=== PATIENT | male | born 1995 | race Caucasian/White ===

== ENCOUNTER 2024-06-24 15:07 | Emergency (ER) | payer OTHER, SELFPAY ==
[2024-06-24 15:08] VITALS: BP 124/83; PULSE 71; RESP 15; TEMP 35.6; O2SAT 98; BMI 35.6
--- NOTE | 2024-06-24 15:27 | EDS_ITS ---
HPI History of Present Illness Chief Complaint: Chest Other Narrative Narrative: 29-year-old male past medical history of eosinophilic esophagitis presents with esophageal swelling over the last 3 hours. He states he ate a piece of chicken at around 1230, and feels like it stuck. He is having difficulty swallowing and occasionally has to spit up in a bag. He states that he was diagnosed with this years ago, when he was in his teens. He recently moved here from [place] within the last 15-month and does not follow-up with anyone. He states that usually when this happens, it goes away after half an hour, but a few years ago he did require steroids in the emergency department. He denies any difficulty breathing. No vomiting, no other symptoms. [facility] Medical History Eosinophilic esophagitis Home Medications ?Medication ?Instructions ?Recorded ?Last Taken ?Type NK 06/24/24 Unknown History Allergy/AdvReac Type Severity Reaction Status Date / Time chicken derived AdvReac Intermediate Swelling Verified 06/24/24 15:12 Egg Derived AdvReac Intermediate Swelling Verified 06/24/24 15:12 Social History Smoking Status: Never smoker ROS ROS ED ROS Narrative Review of systems positive for reported throat swelling, no chest pain or shortness of breath, no fevers or chills, no nausea or vomiting. States he is having difficulty swallowing. EXAM Physical Exam Narrative Exam Narrative: Afebrile. Vital signs noted. Nontoxic-appearing. Cardiovascular examination feels a regular rate rhythm. Lungs are clear to auscultation bilaterally. Abdomen is soft, nontender, with normoactive bowel sounds. No guarding or rebound. Airway is patent. No drooling or trismus. Neck soft and supple without meningismus. Neurological examination is nonfocal and nonlateralizing. Const Vital Signs: 06/24/24 15:08 06/24/24 15:23 06/24/24 16:30 Temperature 96.1 F L 98.0 F Temperature Source Temporal Pulse Rate 71 89 Respiratory Rate 15 17 Respiratory Effort Normal Non-Labored Blood Pressure 124/83 H 130/80 H Blood Pressure Mean 96 96 Pulse Ox 98 99 Oxygen Delivery Method Room Air MDM MDM MDM Narrative Medical decision making narrative: Differential diagnosis includes but not limited to esophageal food impaction versus eosinophilic esophagitis. Patient's pulse ox is 98% on room air. I do not feel that he needs any imaging. He has an occasionally spitting up in an emesis bag, but able to speak in full sentences. I will check a CBC to check if he has an eosinophilia. He was given Solu-Medrol 60 mg intravenously and placed on the ekg monitor tech. I reviewed his laboratory work and he has normal white count of 9.3 with hemoglobin slightly hemoconcentrated at 17.3 and platelet count normal at 260. Eosinophils normal at 4.6. At this point in time, upon repeat examination at approximately 1605, patient is resting comfortably and feels mildly improved. He states he usually only gets 1 dose of steroids and does not have to take any as an outpatient. He will be given a p.o. fluid challenge, and as long as he passes, I feel he can be discharged to follow-up with gastroenterology. He was able to swallow liquids without difficulty. Hence, I do not feel he needs transfer for gastroenterology consult and upper endoscopy. Return instructions to the emergency department were reviewed. Disposition is discharged home in stable condition. History & Record Review Discussion w/independent historian: Patient Lab Data Attestation: I reviewed the patient's lab results. Labs: Laboratory Results - last 24 hr 06/24/24 15:40 WBC 9.3 RBC 5.91 Hgb 17.3 H Hct 50.7 MCV 85.8 MCH 29.3 MCHC 34.1 RDW Std Deviation 37.2 RDW Coeff of Simone 11.9 Plt Count 260 MPV 10.5 Immature Gran % (Auto) 0.100 Neut % (Auto) 48.6 Lymph % (Auto) 39.6 [place] % (Auto) 6.3 Eos % (Auto) 4.6 Baso % (Auto) 0.8 Absolute Neuts (auto) 4.5 Absolute Lymphs (auto) 3.67 Nucleated RBC % 0 Discharge Plan Triage Chief Complaint: Chest Other ED Provider: Nikolas Jamison Dx/Rx/DC Orders Clinical Impression: Difficulty swallowing, Eosinophilic esophagitis Instructions: Eosinophilic Esophagitis (EoE), ED Dysphagia (Adult) Prescriptions: No Action NK Primary Care Provider: Care Physician,No Primary Referrals: Friend,Darius, DO [Med Staff - Active Staff] - As soon as possible Care Physician,No Primary [Primary Care Provider] - Activity Restrictions/Additional Instructions: Clear liquids orally, advance diet as tolerated. Follow-up with gastroentero logy as soon as possible. Return to the emergency department with increased difficulty swallowing, breathing, new or worsening symptoms. Print Language: Turkmen Disposition Disposition: Home, Self Care Discharge Date/Time: 06/24/24 16:30
[2024-06-24] MEDS: MethylPREDNISolone 125 MG/2 ML Vial 60 MG IV (15:31)
[2024-06-24 16:00] LABS: Absolute Lymphocyte Count 3.67 X10^3/uL (0.83-4.51); Absolute Neutrophil Count 4.5 X10^3/uL (2.0-7.7); Basophil# 0.07 X10^3/uL; Basophil% 0.8 % (0-1); Eosinophil# 0.43 X10^3/uL; Eosinophils% 4.6 % (0-5); Hematocrit 50.7 % (40-54); Hemoglobin 17.3 g/dL (13.0-16.5); Lymphocyte # 3.67 X10^3/ul (0.83-4.51); Lymphocyte % 39.6 % (19-41); Mean Corp Hgb Conc 34.1 g/dL (32-36); Mean Corpuscular Hgb 29.3 pg (27.0-32.0); Mean Corpuscular Volume 85.8 fL (80-94); Mean Platelet Vol. 10.5 fl (6.2-12.0); Monocyte# 0.58 X10^3/uL; Monocyte% 6.3 % (0-10); NRBC Flagged by Analyzer 0 % (0-5); Neutrophil # 4.51 X10^3/uL (2.7-7.7); Neutrophil % 48.6 % (47-70); Platelet Count 260 K/mm3 (150-450); RBC Distribution Width CV 11.9 % (11.6-14.6); RBC Distribution Width SD 37.2 fl (35.1-43.9); Red Blood Count 5.91 M/mm3 (4.6-6.2); White Blood Count 9.3 K/mm3 (4.4-11.0)
[2024-06-24 16:30] VITALS: BP 130/80; PULSE 89; RESP 17; TEMP 36.7; O2SAT 99
== END 2024-06-24 16:30 | disposition home or self-care (01) ==
PROVIDERS: Emergency Provider Emergency Medicine; Visit Provider Emergency Medicine
DX: K20.0 Eosinophilic esophagitis (principal); R13.10 Dysphagia, unspecified
CPT/HCPCS: 85025; 96374; 99283; A4216